=== PATIENT | female | born 1990 | race Caucasian/White ===

== ENCOUNTER → 2023-04-08 10:03 | Outpatient (CLI) | payer OTHER, SELFPAY ==
--- NOTE | ~2023-04-08 | MR_ITS ---
EXAMINATION: MR lumbar spine wo con DATE: 04/08/2023 10:43 INDICATION: Bilateral sacroilitis . TECHNIQUE: Magnetic resonance imaging (MRI) of the lumbar spine was performed without intravenous con trast. Sequences included sagittal T2-weighted FSE, sagittal T2-weighted FS FSE, sagittal T1-weighted FSE, and axial T2-weighted FSE. COMPARISON: None FINDINGS: The last fully formed and hydrated disc is designated L5-S1. The marrow signal is benign an d homogenous. Conus terminates at T12-L1. Mild lumbar scoliosis. Mild anterior wedge deformity at L1, no marrow edema, likely chronic or physiologic. Schmorl's node in the inferior endplate of L4. Multi level mild loss of disc height and hydration, most pronounced at L4-5. The following disc levels are specifically discussed: T11-T12: The disc does not extend beyond the endplate margin. There is mild bilateral facet joint ost eoarthritis. There is no neural foraminal stenosis. There is no central canal stenosis. T12-L1: The disc does not extend beyond the endplate margin, 2 mm central extrusion that extends 7 mm superiorly along the posterior aspect of T12. There is mild bilateral facet joint osteoarthritis. Th ere is no neural foraminal stenosis. There is no central canal stenosis. L1-L2: Mild diffuse bulge with a 2 mm left paracentral protrusion and tiny disc rent. There is modera te bilateral facet joint osteoarthritis. There is no neural foraminal stenosis. There is no central c anal stenosis. L2-L3: Mild diffuse bulge. There is moderate bilateral facet joint osteoarthritis. There is mild righ t inferior neural foraminal stenosis. There is no central canal stenosis. L3-L4: Moderate diffuse bulge. There is moderate bilateral facet joint osteoarthritis. There is mild bilateral neural foraminal stenosis. There is mild central canal stenosis. L4-L5: Large diffuse annular bulge. There is moderate bilateral facet joint osteoarthritis. There is mild right and moderate left neural foraminal stenosis. There is mild central canal stenosis. L5-S1: Mild diffuse bulge. There is mild bilateral facet joint osteoarthritis. There is no neural for aminal stenosis. There is no central canal stenosis. IMPRESSION: 1. Multilevel mild and moderate degenerative disc disease, most pronounced at L4-5. 2. Moderate left neural foraminal narrowing at L4-5. 3. Multilevel facet arthropathy. Reviewed, dictated and finalized at location K. IMPRESSION: 1. Multilevel mild and moderate degenerative disc disease, most pronounced at L 4-5. 2. Moderate left neural foraminal narrowing at L4-5. 3. Multilevel facet arthropathy.
== END ==
DX: M46.1 Sacroiliitis, not elsewhere classified (principal); M51.36 Other intervertebral disc degeneration, lumbar region
CPT/HCPCS: 72148